=== PATIENT | female | born 1995 | race Asian ===

== ENCOUNTER 2016-10-20 20:38 | Emergency (ER) | payer OTHER ==
[~2016-10-20] VITALS: Ht 162.6 cm; Wt 60.0 kg
[2016-10-20 20:42] VITALS: TEMP 36.8; Ht 162.6 cm; Wt 60.0 kg
[2016-10-20] MEDS ORDERED: LIDOCAINE/EPINEPHRINE 1% 20 ML VIAL INFIL STA (21:12)
[2016-10-20] MEDS ORDERED: BCPILLS PO (21:14)
--- NOTE | 2016-10-20 22:11 | EMERGENCY ROOM VISIT NOTE ---
ED Visit Note First contact with patient: 20:58 Chief Complaint: "Laceration to left leg". History of Present Illness: This patient is a 21-year-old female who presents to the Emergency Department via private vehicle accompanied by male for evaluation of their left anterior villarreal laceration. Patient sustained the laceration while using a knife in the kitchen, when she actually dropped the knife slicing the left anterior villarreal. They report a moderate amount of bleeding initially. They deny any numbness or tingling into the distal extremity. Patient rates her current discomfort as a 5/10. Patient's Tetanus status is believed to be currently up-to-date as she notes that she did have vaccinations required to attend [facility]. Medications: control pills Allergies: Mangoes PMH: No pertinent past medical history. SHx: Patient lives locally and is a student. ROS: All pertinent positive and negative review of systems are appropriately documented in the History of Present Illness. Physical Exam: VITAL SIGNS - Vital signs and nursing notes were reviewed. GENERAL -21-year-old female appearing her stated age who is in no acute distress. Communicates well with provider and answers questions appropriately. SKIN - There is a 3 cm long laceration noted in the horizontal plane at the mid anterior left villarreal. The edges gape apart with traction. No foreign bodies appreciated. Upon further examination there are no deep structures including vessel, tendon, or bony structures appreciated. There is no active bleeding noted. MUSCULOSKELETAL - tenderness to palpation overlying the direct laceration region. No other tenderness elicited. Full range of motion noted to this extremity. NEUROLOGIC -she is neurovascularly intact in the left lower extremity. VASCULAR - Capillary refill was brisk. ED Course: Patient was seen and evaluated by myself. Risks and benefits of performing primary wound closure versus no repair were discussed with the patient who verbalizes understanding. Verbal consent was obtained prior to performing the procedure. Consent was obtained to allow my physician oral surgery assistant student to performing primary wound closure under my direct supervision. 4 cc of 1% lidocaine with epinephrine was used to anesthetize the left anterior villarreal laceration. The wound was cleansed and prepped in the typical sterile fashion utilizing normal saline and Betadine. The wound was sterilely draped. Once proper anesthetization was established, the wound was further examined and demonstrated no deep involvement. The wound was copiously irrigated with normal saline and Betadine. The wound was closed using 6 simple, 4-0 nylon sutures with the wound edges being well approximated. Patient tolerated the procedure well. No complications were met. The wound was cleansed and dressed with a Bacitracin dressing. At this time she is a very low risk for tetanus given the wound, and there is a slight leg which barrier between describing tetanus. I suspect she likely has this and recommend that she follows with [facility] services to ensure that it is up-to-date. I do not believe that it would be warranted at this time to provide her with an injection or immunization of which she likely already has had recently. Patient educated on worrisome symptoms for return visit to the Emergency Department. Patient discharged to home in good condition. In evaluation treatment this patient following differential diagnoses were entertained: Laceration, among others. Current/Historical Medications Scheduled Control Pills ( Control Pills), 1 TAB PO DAILY Allergies Coded Allergies: [place] (Unverified Allergy, Unknown, ITCHY , 10/20/16) Vital Signs Date Time Temp Pulse Resp B/P (MAP) Pulse Ox O2 Delivery O2 Flow Rate FiO2 10/20/16 22:24 80 18 112/65 99 10/20/16 20:42 36.8 82 18 124/83 99 Room Air Departure Information Impression Primary Impression: Laceration Dispostion Home / Self-Care Condition GOOD Referrals [facility] (PCP) Patient Instructions My [facility] Additional Instructions Discharge Instructions: You have received 6 sutures on your left leg. These sutures are NOT dissolvable and WILL need to be removed by a health care provider in 10-12 days. You can return to the Emergency Department or contact your Primary Care Provider to have the sutures removed. Proper wound care is essential for adequate wound healing and infection prevention. You can shower and clean the wound with soap and water. Do not scour over the wound, pat dry with a towel. Do not submerse the wound (i.e. bathe or dish wash) until the sutures have been removed. You can use an antibiotic ointment with a dressing over the wound for the next 3-4 days. After this time you may leave the wound dry and open to the air. If crust develops over the wound you can use a Q-tip to apply a 1:1 peroxide:water solution to clean the wound. Look for signs of infection of the wound including: increased pain, swelling, foul discharge, streaking, or increased temperature. If any of these are noticed you should return to the Emergency Department for further assessment and treatment. As with any laceration you may have received nerve damage to the surrounding tissues. This damage may or may not be permanent. You should keep the area covered with sunscreen for the first 6 months to 1 year when at risk for exposure to help minimize scarring. You can also use scar reducing creams or Vitamin E oil to help minimize scarring. For pain control, you can use the following [id number] medicines (if >12 yo): - Regular strength (325mg/tab) Tylenol (acetaminophen) 2 tabs every 4-6 hours as needed. Do not exceed 12 tablets in a 24 hour period. Avoid taking more than 3 grams (3000 mg) of Tylenol per day. This includes any other sources of acetaminophen you may take on a regular basis. - Regular strength (200 mg/tab) Advil (ibuprofen) 1-2 tabs every 4-6 hours as needed. Do not exceed a dose of 3200 mg per day. Please call [facility] and verify your tetanus status. If it is not up-to-date please request immunization. Return to the emergency department if your symptoms worsen despite treatment course outlined above. Thank you for your time.
[2016-10-20 22:24] VITALS: BP 112/65; PULSE 80; O2SAT 99
== END 2016-10-20 22:25 | disposition home or self-care (01) ==
LOC: C.EDB 20:39 → C.EDD 22:25
DX: S81.812A Laceration without foreign body, left lower leg, initial encounter (principal); W26.0XXA Contact with knife, initial encounter; Z91.018 Allergy to other foods